=== PATIENT | female | born 2000 | race Two or more races ===

== ENCOUNTER 2021-07-17 14:54 | Outpatient (CLI) | payer OTHER | END 2021-07-17 16:40 | disposition home or self-care (01) | LOC: PRENATAL 14:54 | PROVIDERS: ATTEND Obstetrics & Gynecology Maternal & Fetal Medicine | DX: O35.0XX1 Maternal care for (suspected) central nervous system malformation in fetus, fetus 1 (principal); O35.3XX1 Maternal care for (suspected) damage to fetus from viral disease in mother, fetus 1; O98.512 Other viral diseases complicating pregnancy, second trimester; Z36.89 Encounter for other specified antenatal screening; Z3A.25 25 weeks gestation of pregnancy ==

== ENCOUNTER 2021-09-11 22:41 | Outpatient (CLI) | payer OTHER ==
[2021-09-12] MEDS ORDERED: PRENATAL TABLE1 EAC1 PO (00:32)
== END 2021-09-12 11:17 | disposition home or self-care (01) ==
LOC: OBS/DEL 22:41
PROVIDERS: ATTEND Obstetrics & Gynecology
DX: O23.593 Infection of other part of genital tract in pregnancy, third trimester (principal); Z3A.33 33 weeks gestation of pregnancy

== ENCOUNTER 2021-10-18 12:45 | Inpatient (IN) | payer OTHER ==
[~2021-10-18] VITALS: Ht 167.6 cm; Wt 3.2 kg
[~2021-10-18 12:45] MED LIST: PRENATAL TABLE1 EAC1 PO
== END 2021-10-21 12:11 | DRG 788 ==
LOC: OBS/DEL 12:45 → LDR 13:56 → OB/GYN 13:56
PROVIDERS: ADMIT Obstetrics & Gynecology; ATTEND Obstetrics & Gynecology
PROC: 10907ZC Drainage of Amniotic Fluid, Therapeutic from Products of Conception, Via Natural or Artificial Opening (ICD-10-PCS; 2021-10-18)
PROC: 4A1HXFZ Monitoring of Products of Conception, Cardiac Rhythm, External Approach (ICD-10-PCS; 2021-10-18)
PROC: 10D00Z1 Extraction of Products of Conception, Low, Open Approach (ICD-10-PCS; principal; 2021-10-18 17:00)
DX: O62.1 Secondary uterine inertia (principal); O65.1 Obstructed labor due to generally contracted pelvis; Z3A.38 38 weeks gestation of pregnancy; Z37.0 Single live birth

== ENCOUNTER 2023-09-23 13:07 | Outpatient (CLI) | payer OTHER | END 2023-09-23 13:11 | disposition home or self-care (01) | LOC: PRENATAL 13:07 | PROVIDERS: ATTEND Obstetrics & Gynecology Maternal & Fetal Medicine | DX: O35.3XX0 Maternal care for (suspected) damage to fetus from viral disease in mother, not applicable or unspecified (principal); O44.00 Complete placenta previa NOS or without hemorrhage, unspecified trimester; Z3A.20 20 weeks gestation of pregnancy ==

== ENCOUNTER 2023-12-10 14:02 | Outpatient (CLI) | payer OTHER | END 2023-12-10 14:03 | disposition home or self-care (01) | LOC: PRENATAL 14:02 | PROVIDERS: ATTEND Obstetrics & Gynecology Maternal & Fetal Medicine | DX: O26.849 Uterine size-date discrepancy, unspecified trimester (principal); O36.8199 Decreased fetal movements, unspecified trimester, other fetus; Z3A.32 32 weeks gestation of pregnancy ==

== ENCOUNTER 2024-01-12 09:51 | Outpatient (CLI) | payer OTHER ==
[~2024-01-12] VITALS: Ht 167.6 cm; Wt 73.0 kg
== END 2024-01-12 10:53 | disposition home or self-care (01) ==
LOC: OBS/DEL 09:51
PROVIDERS: ATTEND Obstetrics & Gynecology
DX: O47.03 False labor before 37 completed weeks of gestation, third trimester (principal); Z3A.36 36 weeks gestation of pregnancy

== ENCOUNTER 2024-01-23 00:24 | Inpatient (IN) | payer OTHER ==
[~2024-01-23] VITALS: Ht 167.6 cm; Wt 3.2 kg
[2024-01-23] MEDS ORDERED: RINGERS SOLUTION,LACTATED 1,000 ML IV SCH ×2 (00:45→16:45)
[2024-01-23 01:13] LABS: PH,URINE 5.5 (5.0-8.0); URINE BILIRRUBIN Small (NEGATIVE); URINE BLOOD Negative; URINE COLOR Dark Yellow; URINE GLUCOSE Negative (NEGATIVE); URINE LEUKOCYTE Negative; URINE NITRATE Negative; URINE PROTEIN 30 (NEGATIVE)
[2024-01-23 01:15] LABS: HEMATOCRIT 29.8 % (36.0-45.00); MEAN CELL VOLUME 80.6 fL (80.00-100.00); MEAN CORPUSCULAR HGB CONC 33.6 g/dl (32.0-36.0); PLATELET COUNT 132 K/uL (150-450); RED CELL DISTRIBUTION WIDTH 15.3 % (11.5-14.5)
[2024-01-23 01:17] LABS: URINE BACTERIA 2143.2 uL (0.0-1933); URINE EPITHELIAL CELLS 112.2 uL (0.0-38.8); URINE RBC 3.1 uL (0.0-20.8); URINE WBC 21.1 uL (0.0-23.2)
[2024-01-23 01:44] LABS: CALCIUM 9.1 mg/dL (8.5-10.1); CREATININE SERUM 0.7 mg/dL (0.55-1.02); GFR 102.8; INR < 0.93; PARTIAL THROMBOPLASTIN TIME 24.6 SECONDS (22.0-34.0); POTASSIUM 4.02 mEq/L (3.5-5.1); PROTHROMBIN TIME 9.4 SECONDS (9.0-11.5)
[2024-01-23 01:46] LABS: URINE APPEARANCE SL CLOUDY
[2024-01-23] MEDS ORDERED: OXYTOCIN 10 UNITS/ML VIAL ONE (12:56)
[2024-01-23] MEDS ORDERED: ERYTHROMYCIN BASE 3.5 GM OINT...G. OP ONE (12:56)
[2024-01-23] MEDS ORDERED: CEFAZOLIN SODIUM 1,000 MG VIAL ONE (15:05)
[2024-01-23] MEDS ORDERED: HEMOSTATIC MATRIX 1 KIT KIT TOP ONE (15:37)
[2024-01-23] MEDS ORDERED: OXYTOCIN 1,000 ML IV SCH (16:45)
[2024-01-23] MEDS ORDERED: MORPHINE SULFATE 4 MG/ML CARTRIDGE IV PRN (16:45)
[2024-01-23] MEDS ORDERED: DOCUSATE SODIUM 100MG CAP PO SCH (17:00)
[2024-01-23] MEDS ORDERED: OXYTOCIN 10 UNITS/ML VIAL IV ONE (17:15)
[2024-01-23] MEDS ORDERED: ERYTHROMYCIN BASE 1 GM TUBE OP ONE (17:15)
[2024-01-23] MEDS ORDERED: CEFAZOLIN SODIUM 1,000 MG VIAL IV ONE ×2 (17:15→20:00)
[2024-01-23] MEDS ORDERED: SIMETHICONE 125 MG CAPSULE PO SCH (18:00)
[2024-01-23 19:43] LABS: HEMATOCRIT 31.1 % (36.0-45.00); HEMOGLOBIN 10.1 g/dL (12.0-15.00); MEAN CELL VOLUME 79.3 fL (80.00-100.00); MEAN CORPUSCULAR HEMOGLOBIN 25.8 pg (27.00-32.0); MEAN CORPUSCULAR HGB CONC 32.5 g/dl (32.0-36.0); RED BLOOD COUNT 3.92 M/uL (4.00-6.00); RED CELL DISTRIBUTION WIDTH 16.1 % (11.5-14.5)
[2024-01-23 19:46] LABS: PLATELET COUNT 118 K/uL (150-450)
[2024-01-23 20:14] LABS: ABG PH 7.281 (7.35-7.45); ABG pCO2 49.5 mmHg (35-45)
[2024-01-23 20:15] LABS: ABG PO2 19.7 mmHg (80-100); BASE EXCESS -4.3 mmol/l; BICARBONATE 22.8 mmol/l (23-25); SaO2 23.7 %; Tco2 24.3 mmol/l; o2 21 %
[2024-01-24] MEDS ORDERED: IBUprofen 800 MG TABLET PO PRN (09:00)
== END 2024-01-25 12:35 | disposition home or self-care (01) | DRG 785 ==
LOC: OBS/DEL 00:24 → OB/GYN 08:07 → LDR 08:07 → O/R 15:03 → OB/GYN 17:20
PROVIDERS: ADMIT Obstetrics & Gynecology; ATTEND Obstetrics & Gynecology
PROC: 0UB70ZZ Excision of Bilateral Fallopian Tubes, Open Approach (ICD-10-PCS; 2024-01-23)
PROC: 4A1HXCZ Monitoring of Products of Conception, Cardiac Rate, External Approach (ICD-10-PCS; 2024-01-23)
PROC: 10D00Z1 Extraction of Products of Conception, Low, Open Approach (ICD-10-PCS; principal; 2024-01-23 16:15)
DX: O32.1XX0 Maternal care for breech presentation, not applicable or unspecified (principal); O34.211 Maternal care for low transverse scar from previous cesarean delivery; Z30.2 Encounter for sterilization; Z3A.38 38 weeks gestation of pregnancy; Z37.0 Single live birth; Z20.822 Contact with and (suspected) exposure to COVID-19